=== PATIENT | male | born 1995 | race Caucasian/White ===

== ENCOUNTER 2018-07-18 23:29 | Emergency (ER) | payer OTHER ==
[~2018-07-18] VITALS: Wt 77.0 kg
[2018-07-18 23:31] VITALS: BP 118/79; PULSE 107; RESP 18
[2018-07-19] MEDS ORDERED: ACETAMINOPHEN 500 MG TAB PO STA (02:14)
[2018-07-19] MEDS ORDERED: ACET500C5 PO (02:16)
[2018-07-19] MEDS ORDERED: AZIT250T PO (02:16)
[2018-07-19] MEDS ORDERED: IBUP-1542 PO (02:16)
[2018-07-19] MEDS ORDERED: IBUPROFEN 600 MG TAB PO ONE (02:30)
--- NOTE | 2018-07-19 05:57 | ERD ---
ER Documentation Chief Complaint Chief Complaint FEVER, COUGH, CONGESTION X'S 2 DAYS HPI 23-year-old male presenting with cough and fever with congestion x2 days. Patient took NyQuil 3 hours prior to my evaluation. Denies vomiting. Denies abdominal pain. Denies change in urination or bowel movement. Has a runny nose and a sore throat. No other medical problems. NKDA. Surgical history denies. Social history denies ROS All systems reviewed and are negative except as per history of present illness. Medications Home Meds Active Scripts Acetaminophen* (Tylophen*) 500 Mg Capsule, 2 CAP PO Q8H PRN for PAIN AND OR ELEVATED TEMP, #20 CAP Prov:ARABELLA AGUSTIN PA-C 07/19/18 Ibuprofen* (Motrin*) 600 Mg Tab, 600 MG PO Q6H PRN for PAIN AND OR ELEVATED TEMP, #30 TAB Prov:ARABELLA AGUSTIN PA-C 07/19/18 Azithromycin* (Zithromax*) 250 Mg Tablet, 250 MG PO .ZPACK DIRECTED, #6 TAB TAKE 500 MG (2 TABS) THE FIRST DAY THEN 250 MG (1 TAB) DAYS 2-5 Prov:ARABELLA AGUSTIN PA-C 07/19/18 Allergies Allergies: Coded Allergies: No Known Allergy (Unverified , 07/18/18) PMhx/Soc Medical and Surgical Hx: pt denies Medical Hx, pt denies Surgical Hx Hx Alcohol Use: No Hx Substance Use: No Hx Tobacco Use: No Smoking Status: Never smoker FmHx Family History: No diabetes, No coronary disease, No other Physical Exam Vitals Vital Signs Date Temp Pulse Resp B/P (MAP) Pulse Ox O2 O2 Flow FiO2 Time Delivery Rate 07/19/18 98.4 02:37 07/18/18 101.5 107 18 118/79 99 23:31 (92) Physical Exam GENERAL: The patient is well-appearing, well-nourished, in no acute distress HEENT: Atraumatic. Conjunctivae are pink. Pupils equal, round, and reactive to light. There is no scleral icterus. Tympanic membranes clear bilaterally. Oropharynx clear. No nystagmus or photophobia. NECK: C-spine is soft and supple. There is no meningismus. There is no cervical lymphadenopathy. CHEST: Clear to auscultation bilaterally. There are no rales, wheezes or rhonchi. HEART: Regular rate and rhythm. No murmurs, clicks, rubs or gallops. ABDOMEN:Soft, nontender and nondistended. Good bowel sounds. No rebound or guarding. No gross peritonitis. No gross organomegaly or masses. N BACK: No midline or flank tenderness. EXTREMITIES: Equal pulses bilaterally. There is no peripheral clubbing, cyanosis or edema. No focal swelling or erythema. Full range of motion. Grossly neurovascularly intact. NEUROLOGIC: Alert and oriented. Cranial nerves II through XII intact. Motor strength in all 4 extremities with 5 out of 5 strength. Sensation grossly intact. Normal speech and gait. Results 24 hrs Current Medications Medications Dose Sig/Harmeet Start Time Status Last (Trade) Ordered Route PRN Stop Time Admin Dose Reason Admin Ibuprofen 600 mg ONCE ONCE 07/19/18 DC 07/19/18 (Motrin) PO 02:30 02:34 07/19/18 02:31 1,000 mg ONCE STAT 07/19/18 DC 07/19/18 Acetaminophen PO 02:14 02:34 (Tylenol 07/19/18 02:16 Tab) Procedures/MDM DM: 23-year-old male presenting with cough and fever. I have low suspicion for pneumonia. I have low suspicion for meningitis or sepsis. I have low suspicion for bacterial HEENT infection. Patient likely has viral syndrome. Patient is discharged with strict ER precautions and told to follow-up with primary care within 1 to 2 days for close evaluation. Patient is told symptoms change or worsen to return immediately to the ER. All questions answered at discharge Departure Diagnosis: Primary Impression: Viral syndrome Additional Impression: Fever Condition: Stable Patient Instructions: Fever Control (Child), Viral Syndrome (Adult) Referrals: COMMUNITY CLINICS YOU HAVE RECEIVED A MEDICAL SCREENING EXAM AND THE RESULTS INDICATE THAT YOU DO NOT HAVE A CONDITION THAT REQUIRES URGENT TREATMENT IN THE EMERGENCY DEPARTMENT. FURTHER EVALUATION AND TREATMENT OF YOUR CONDITION CAN WAIT UNTIL YOU ARE SEEN IN YOUR DOCTORS OFFICE WITHIN THE NEXT 1-2 DAYS. IT IS YOUR RESPONSIBILITY TO MAKE AN APPOINTMENT FOR FOLOW-UP CARE. IF YOU HAVE A PRIMARY DOCTOR --you should call your primary doctor and schedule an appointment IF YOU DO NOT HAVE A PRIMARY DOCTOR YOU CAN CALL OUR PHYSICIAN REFERRAL HOTLINE AT IF YOU CAN NOT AFFORD TO SEE A PHYSICIAN YOU CAN CHOSE FROM THE FOLLOWING [facility] [address] [facility] [address] [facility]. [facility] [address] [facility] [address] [facility]. [facility] [phone] [id number] [facility]. [facility] [address] Additional Instructions: FOLLOW UP WITH YOUR PRIMARY CARE PHYSICIAN TOMORROW.Return to this facility if you are not improving as expected. ARABELLA AGUSTIN PA-C July 19, 2018 05:57
== END 2018-07-19 02:37 | disposition home or self-care (01) ==
LOC: FTE 23:29
DX: B34.9 Viral infection, unspecified (principal)
CPT/HCPCS: 99283